=== PATIENT | male | born 1980 | race Hispanic/Latino ===

== ENCOUNTER 2017-07-24 15:27 | Emergency (ER) | payer BC ==
[2017-07-24 15:40] VITALS: BP 157/98; PULSE 75; RESP 16; TEMP 98.1; O2SAT 98
--- NOTE | 2017-07-24 15:58 | ED PDOC ---
HPI: CCC, URI, Sore Throat Time Seen by Provider: 07/24/17 15:40 Chief Complaint (Nursing): ENT Problem Chief Complaint (Provider): right ear pain History Per: Patient Additional Complaint(s): Patient presents to ED with pain and feeling of fullness to right ear x 1 day. He denies fever or chills. No meds taken for pain relief. Upon arrival to ED room, patient states, "I have a flight to catch so I have to leave in under an hour." Past Medical History Reviewed: Historical Data, Nursing Documentation, Vital Signs Vital Signs: Last Vital Signs Temp 98.1 F 07/24/17 15:37 Pulse 75 07/24/17 15:37 Resp 16 07/24/17 15:37 BP 157/98 H 07/24/17 15:37 Pulse Ox 98 07/24/17 15:37 - Medical History Other PMH: seasonal allergies - Surgical History Surgical History: Tonsillectomy (and adenoids) Other surgeries: nasal septum surgery - Family History Family History: States: No Known Family Hx - Living Arrangements Living Arrangements: With Friends/Others - Social History Current smoker - smoking cessation education provided: No Alcohol: None Drugs: Denies - Home Medications Home Medications: Ambulatory Orders Medication Instructions Recorded Carbamide Peroxide [Murine Ear Wax 15 ml OT ASDIR #1 bottle 07/24/17 Removal System] - Allergies Allergies/Adverse Reactions: Allergies Allergy/AdvReac Type Severity Reaction Status Date / Time Penicillins Allergy RASH Verified 07/24/17 15:40 Review of Systems ROS Statement: Except As Marked, All Systems Reviewed And Found Negative Constitutional: Negative for: Fever ENT: Positive for: Other (right ear pain) Neurological: Negative for: Headache, Dizziness Physical Exam - Reviewed Nursing Documentation Reviewed: Yes Vital Signs Reviewed: Yes - Physical Exam Appears: Positive for: Well, Non-toxic, No Acute Distress Skin: Negative for: Rash Eye Exam: Positive for: Normal appearance, EOMI, PERRL ENT: Positive for: Other (cerumen noted deep in right AC, TM not visualized, left ear wnl. ) Cardiovascular/Chest: Positive for: Regular Rate, Rhythm Respiratory: Positive for: Normal Breath Sounds Neurologic/Psych: Positive for: Alert, Oriented - ECG O2 Sat by Pulse Oximetry: 98 Pulse Ox Interpretation: Normal Medical Decision Making Medical Decision Making: Impression: Cerumen impaction Plan: Rx ear was removal kit, NSAID's prn pain. ENT referral provided. Disposition - Clinical Impression Clinical Impression: Cerumen impaction - Patient ED Disposition Is Patient to be Admitted: No Counseled Patient/Family Regarding: Diagnosis, Need For Followup, Rx Given - Disposition Referrals: Sonu Cat MD [Staff Provider] - Disposition: Routine/Home Disposition Time: 16:00 Condition: STABLE Additional Instructions: Use rx meds as directed. Over the counter advil for pain as needed. Follow up with ear, nose and throat specialist for any persistent symptoms. Prescriptions: Carbamide Peroxide [Murine Ear Wax Removal System] 15 ml OT ASDIR #1 bottle Instructions: Cerumen Impaction (ED) Forms: [facility] ([place])
== END 2017-07-24 16:13 | disposition home or self-care (01) ==
LOC: H.ER 15:27
DX: H61.21 Impacted cerumen, right ear (principal)